=== PATIENT | male | born 1960 | race Caucasian/White ===

== ENCOUNTER → 2024-03-05 | Day surgery (SDC) | payer MEDICARE ==
[~2024-03-05] VITALS: Ht 185.4 cm; Wt 110.2 kg
[~2024-03-05] MED LIST: Balanced Salt Solution 500 ML OPH SCH; Cefuroxime Sodium 5 MG in BALANCED SALT IRRIG SOLN NO.2 0.5 ML,SYRINGE, DISPOSABLE, 10 ... IO SCH; HYDR25T PO; LISINOPRIL20 MG PO; Midazolam Hydrochloride 2 MG/2 ML VIAL IV ONE; OFLOXACIN 0.3% 5 ML BOTTLE ONE; OFLOXACIN 0.3% 5 ML BOTTLE OPH SCH; PHENYLEPHRINE/KETOROLAC 4 ML in Balanced Salt Solution 500 ML OPH SCH; POVIDONE IODINE 5% OPHTHALMIC 30 ML BOTTLE OPH ONE; POVIDONE IODINE 5% OPHTHALMIC 30 ML BOTTLE OPH SCH; PREDNISONE10 MG PO; Phenylephrine Hydrochloride 2 ML BOT OPH ONE; Phenylephrine Hydrochloride 2 ML BOT OPH SCH; Proparacaine Hydrochloride 15 ML BOT OPH ONE; Proparacaine Hydrochloride 15 ML BOT OPH SCH; SODIUM CHLORIDE 0.9% 1,000 ML IV SCH; TROPICAMIDE 3 ML BOT OPH ONE; TROPICAMIDE 3 ML BOT OPH SCH; Tetracaine Hydrochloride 0.5% 4 ML BOT OPH ONE; Tetracaine Hydrochloride 0.5% 4 ML BOT OPH SCH; VITAMIN D3125 MC1 PO; prednisoLONE acetate 1% OPHTHALMIC 5 ML BOT OPH ONE; prednisoLONE acetate 1% OPHTHALMIC 5 ML BOT OPH SCH
[2024-03-05 10:48] VITALS: BP 149/71
[2024-03-05 11:55] VITALS: BP 138/58
[2024-03-05 12:10] VITALS: BP 130/61
[2024-03-05 12:25] VITALS: BP 143/87
== END | disposition home or self-care (01) ==
LOC: SDC 02-29 15:30
PROVIDERS: ATTEND Ophthalmology
DX: H25.12 Age-related nuclear cataract, left eye (principal); G43.909 Migraine, unspecified, not intractable, without status migrainosus; E66.9 Obesity, unspecified; Z68.30 Body mass index [BMI] 30.0-30.9, adult; Z98.890 Other specified postprocedural states

== ENCOUNTER → 2024-04-16 | Day surgery (SDC) | payer MEDICARE ==
[~2024-04-16] VITALS: Ht 185.4 cm; Wt 110.2 kg
[~2024-04-16] MED LIST changes: -Midazolam Hydrochloride 2 MG/2 ML VIAL IV ONE; +Midazolam Hydrochloride 5 MG/5 ML VIAL IV ONE; +TETRACAINE HCL 10 DROP BOT OPH SCH
[2024-04-16 09:24] VITALS: BP 121/64
[2024-04-16 09:58] VITALS: BP 124/56
[2024-04-16 10:13] VITALS: BP 127/53
[2024-04-16 10:23] VITALS: BP 115/83
== END | disposition home or self-care (01) ==
LOC: SDC 04-11 11:00
PROVIDERS: ATTEND Ophthalmology
DX: H25.11 Age-related nuclear cataract, right eye (principal); I16.1 Hypertensive emergency; F10.90 Alcohol use, unspecified, uncomplicated; E66.9 Obesity, unspecified; Z68.30 Body mass index [BMI] 30.0-30.9, adult; Z98.42 Cataract extraction status, left eye; Z98.890 Other specified postprocedural states